=== PATIENT | male | born 1990 | race American Indian/Alaskan Native ===

== ENCOUNTER 2019-02-26 19:00 | Emergency (ER) | payer SELFPAY ==
[2019-02-26 19:32] VITALS: BP 125/92
--- NOTE | 2019-02-26 19:49 | Event Note ---
ED Screening Note ED Screening Note: 4 days fever productive cough with green phlegm diarrhea vomiting difficulty tolerating po intake no sick contacts no pmhx no allergies to meds language line used for upper sorbian This initial assessment/diagnostic orders/clinical plan/treatment(s) is/are subject to change based on patients health status, clinical progression and re- assessment by fellow clinical providers in the ED. Further treatment and workup at subsequent clinical providers discretion. Patient/guardian urged not to elope from the ED as their condition may be serious if not clinically assessed and managed. Initial orders include: CXR labs
--- NOTE | 2019-02-26 20:20 | XRay Report ---
CHEST 2 VIEWS INDICATION / CLINICAL INFORMATION: productive cough. COMPARISON: None available. FINDINGS: SUPPORT DEVICES: None. HEART / MEDIASTINUM: No significant abnormality. LUNGS / PLEURA: No significant pulmonary or pleural abnormality. No pneumothorax. ADDITIONAL FINDINGS: No significant additional findings. IMPRESSION: 1. No acute findings. No convincing evidence for pneumonia. Signer Name: Shira Garcia MD Signed: 02/26/2019 8:16 PM Workstation Name: [id number]
[2019-02-26] MEDS ORDERED: methylPREDNISolone Sod Succinate 125 MG/2 ML INJ IV ONE (21:51)
[2019-02-26] MEDS ORDERED: ONDANSETRON 4 MG/2 ML INJ IV ONE (21:51)
[2019-02-26] MEDS ORDERED: IPRATROPIUM/ALBUTEROL SULFATE 3 ML AMPUL.NEB IH ONE (21:51)
[2019-02-26] MEDS ORDERED: FAMOTIDINE 20 MG/2 ML INJ IV ONE (21:51)
[2019-02-26] MEDS ORDERED: DICYCLOMINE 20 MG TAB PO ONE (21:52)
[2019-02-26 22:12] LABS: Alanine Aminotransferase 21 units/L (7-56); Albumin 4.8 g/dL (3.9-5); BUN/Creatinine Ratio 11; Blood Urea Nitrogen 8 mg/dL (9-20); Calcium 9.4 mg/dL (8.4-10.2); Hemolysis Index 36
[2019-02-26 22:33] LABS: Hematocrit 46.1 % (35.5-45.6); Hemoglobin 15.6 gm/dl (11.8-15.2); Mean Corpuscular HGB Conc 34 % (32-34); Mean Corpuscular Volume 95 fl (84-94); Platelet Count 238 K/mm3 (140-440); Red Blood Count 4.88 M/mm3 (3.65-5.03); Red Cell Distribution Width 12.5 % (13.2-15.2)
[2019-02-26 23:31] LABS: Basophils % (Manual) 0 % (0.0-1.8); Eosinophils % (Manual) 0 % (0.0-4.3); Platelet Estimate Consistent w Auto; RBC Morphology Normal; Total Cells Counted 100
--- NOTE | 2019-02-27 00:19 | Emergency Department Report ---
- General Chief Complaint: Nausea/Vomiting/Diarrhea Stated Complaint: FEVER,WEAKNESS, BODY PAIN Time Seen by Provider: 02/26/19 19:36 Source: patient Mode of arrival: Ambulatory Limitations: Language Barrier - History of Present Illness Initial Comments: Patient is a 29-year-old male with no past medical history who presents to the ED with congenital acute onset persistent nasal and sinus congestion, frontal sinus pressure and headache, persistent dry cough, diffuse body aches and pains, shortness of breath, intermittent nausea and vomiting with diarrhea and epigastric pain for the last 1 week, worse in the last 4 days. Patient denies dizziness, syncope, chest pain, change in vision, dysuria, testicular pain, sore throat, no back pain, or shortness of breath. Patient states that he has been taking [id number] medications with no relief. MD Complaint: fever, cough, sore throat, rhinorrhea, nasal congestion, sinus pain, other (diffuse body aches and pains; Nausea, vomiting, diarrhea) -: Sudden, days(s) (4) Severity: severe Severity scale (0 -10): 7 Quality: sharp, aching Consistency: constant Improves With: nothing Worsens With: nothing Context: sick contacts Associated Symptoms: denies other symptoms, fever, chills, myalgias, headache, rhinorrhea, nasal congestion, sore throat, cough, shortness of breath, nausea, vomiting, diarrhea. denies: dysuria, rash, confusion, epistaxis, hoarseness Treatments Prior to Arrival: none - Related Data Previous Rx's Medication Instructions Recorded Last Taken Type Albuterol INH(or & Nicu Only) 1 - 2 puff IH Q6H PRN #1 inh 02/27/19 Unknown Rx [ProAir HFA Inhaler] Amoxicillin [Trimox CAP] 500 mg PO Q8H #30 capsule 02/27/19 Unknown Rx Benzonatate [Tessalon Perles] 100 mg PO Q8HR #30 capsule 02/27/19 Unknown Rx Cetirizine HCl [Zyrtec 10mg tab] 10 mg PO DAILY #30 tablet 02/27/19 Unknown Rx Famotidine [Pepcid] 20 mg PO Q12H #40 tablet 02/27/19 Unknown Rx Ibuprofen [Motrin] 600 mg PO Q8H PRN #24 tablet 02/27/19 Unknown Rx Ondansetron [Zofran Odt] 4 mg PO Q6HR PRN #20 tab.rapdis 02/27/19 Unknown Rx Prednisone [predniSONE 10 mg 10 mg PO .TAPER #21 tab.ds.pk 02/27/19 Unknown Rx (6-Day Pack, 21 Tabs)] Allergies Allergy/AdvReac Type Severity Reaction Status Date / Time No Known Allergies Allergy Unverified 02/26/19 19:49 ED Review of Systems ROS: Stated complaint: FEVER,WEAKNESS, BODY PAIN Other details as noted in HPI Constitutional: denies: chills, fever Eyes: denies: eye pain, eye discharge, vision change ENT: congestion. denies: ear pain, throat pain Respiratory: cough, wheezing. denies: shortness of breath Cardiovascular: denies: chest pain, palpitations Endocrine: no symptoms reported Gastrointestinal: nausea, vomiting, diarrhea Genitourinary: denies: urgency, dysuria Musculoskeletal: arthralgia, myalgia. denies: back pain, joint swelling Skin: denies: rash, lesions Neurological: headache. denies: weakness, paresthesias Psychiatric: denies: anxiety, depression Hematological/Lymphatic: denies: easy bleeding, easy bruising ED Past Medical Hx - Past Medical History Previous Medical History?: No - Surgical History Past Surgical History?: No - Social History Smoking Status: Never Smoker Substance Use Type: None - Medications Home Medications: Home Medications Medication Instructions Recorded Confirmed Last Taken Type Albuterol INH(or & Nicu Only) 1 - 2 puff IH Q6H PRN #1 inh 02/27/19 Unknown Rx [ProAir HFA Inhaler] Amoxicillin [Trimox CAP] 500 mg PO Q8H #30 capsule 02/27/19 Unknown Rx Benzonatate [Tessalon Perles] 100 mg PO Q8HR #30 capsule 02/27/19 Unknown Rx Cetirizine HCl [Zyrtec 10mg tab] 10 mg PO DAILY #30 tablet 02/27/19 Unknown Rx Famotidine [Pepcid] 20 mg PO Q12H #40 tablet 02/27/19 Unknown Rx Ibuprofen [Motrin] 600 mg PO Q8H PRN #24 tablet 02/27/19 Unknown Rx Ondansetron [Zofran Odt] 4 mg PO Q6HR PRN #20 tab.rapdis 02/27/19 Unknown Rx Prednisone [predniSONE 10 mg 10 mg PO .TAPER #21 tab.ds.pk 02/27/19 Unknown Rx (6-Day Pack, 21 Tabs)] ED Physical Exam - General Limitations: Language Barrier General appearance: alert, in no apparent distress - Head Head exam: Present: atraumatic, normocephalic, normal inspection - Eye Eye exam: Present: normal appearance, PERRL, EOMI - ENT ENT exam: Present: normal orophraynx, mucous membranes moist, TM's normal bilaterally, normal external ear exam, other (grossly congested nasal passages; palpable frontal and maxillary sinus tenderness) - Neck Neck exam: Present: normal inspection, full ROM, lymphadenopathy - Respiratory Respiratory exam: Present: wheezes (order to diffuse coarse wheezes throughout). Absent: respiratory distress, rales, rhonchi, chest wall tenderness, accessory muscle use, decreased breath sounds - Cardiovascular Cardiovascular Exam: Present: regular rate, normal rhythm, normal heart sounds. Absent: systolic murmur, diastolic murmur, rubs, gallop - GI/Abdominal GI/Abdominal exam: Present: soft, normal bowel sounds. Absent: tenderness, guarding, hyperactive bowel sounds, hypoactive bowel sounds - Extremities Exam Extremities exam: Present: normal inspection, full ROM, normal capillary refill - Back Exam Back exam: Present: normal inspection, full ROM. Absent: CVA tenderness (L), muscle spasm, paraspinal tenderness - Neurological Exam Neurological exam: Present: alert, oriented X3, CN II-XII intact, normal gait, reflexes normal - Psychiatric Psychiatric exam: Present: normal affect, normal mood - Skin Skin exam: Present: warm, dry, intact, normal color. Absent: rash ED Course Vital Signs 02/26/19 02/26/19 02/26/19 19:22 19:36 23:12 Temperature 98.6 F 98.6 F Pulse Rate 96 H 88 Pulse Rate [ 85 Bilateral] Respiratory 18 18 Rate Respiratory 22 Rate [Bilateral ] Blood Pressure 125/92 125/92 O2 Sat by Pulse 98 98 Oximetry ED Medical Decision Making - Lab Data Result diagrams: 02/26/19 20:50 02/26/19 20:50 - Radiology Data Radiology results: report reviewed, image reviewed Chest x-ray shows no acute cardiopulmonary abnormalities or pneumonitis. - Medical Decision Making This is a 29-year-old male who presented to the ED with nasal and sinus congestion, frontal sinus pressure and pain, headache, diffuse body aches and pains, persistent dry cough with wheezing, intermittent nausea and vomiting and diarrhea. In the ED, patient is alert and oriented 3 and is not in distress with normal vital signs. Patient was treated in the ED with DuoNeb and Solu- Medrol and also treated for nausea and vomiting. Lab test results were reviewed and are nonactionable. On reevaluation, patient's cough and wheezing resolved with medications. Patient has not had any nausea or vomiting while in the ED. Patient was discharged home on medications and advised to follow-up with his primary care physician in 7-10 days for reevaluation or return to the ED im mediately if symptoms get worse. - Differential Diagnosis URI; Sinusitis; Bronchitis; Pneumonia; Flu; GERD; Gastroenteritis Critical care attestation.: If time is entered above; I have spent that time in minutes in the direct care of this critically ill patient, excluding procedure time. ED Disposition Clinical Impression: Acute upper respiratory infection, Acute bacterial sinusitis, Nausea, vomiting and diarrhea, Flu-like symptoms Acute bronchitis Qualifiers: Bronchitis organism: other organism Qualified Code(s): J20.8 - Acute bronchitis due to other specified organisms Disposition: DC-01 TO HOME OR SELFCARE Is pt being admited?: No Does the pt Need Aspirin: No Condition: Stable Instructions: Acute Bronchitis (ED), Acute Nausea and Vomiting (ED), Upper Respiratory Infection (ED), Acute Bacterial Rhinosinusitis (ED) Additional Instructions: [facility] medicamentos con alimentos, stefan muchos lquidos y cari un seguimiento con lawrence mdico de atencin primaria en 7-10 taylor para la reevaluacin. Regrese al servicio de urgencias de inmediato si los sntomas empeoran. Prescriptions: Ibuprofen [Motrin] 600 mg PO Q8H PRN #24 tablet PRN Reason: Pain Famotidine [Pepcid] 20 mg PO Q12H #40 tablet Prednisone [predniSONE 10 mg (6-Day Pack, 21 Tabs)] 10 mg PO .TAPER #21 tab.ds.pk Albuterol INH(or & Nicu Only) [ProAir HFA Inhaler] 1 - 2 puff IH Q6H PRN #1 inh PRN Reason: Dyspnea Benzonatate [Tessalon Perles] 100 mg PO Q8HR #30 capsule Amoxicillin [Trimox CAP] 500 mg PO Q8H #30 capsule Ondansetron [Zofran Odt] 4 mg PO Q6HR PRN #20 tab.rapdis PRN Reason: Nausea Cetirizine HCl [Zyrtec 10mg tab] 10 mg PO DAILY #30 tablet Referrals: [facility] [Outside] - 3-5 Days KELY NIETO MD [Staff Physician] - 3-5 Days Forms: Work/School Release Form(ED) Time of Disposition: 00:15 Print Language: CHINESE
== END 2019-02-27 01:23 | disposition home or self-care (01) ==
LOC: ED 19:00
DX: J20.8 Acute bronchitis due to other specified organisms (principal); J11.1 Influenza due to unidentified influenza virus with other respiratory manifestations; J06.9 Acute upper respiratory infection, unspecified; J01.80 Other acute sinusitis; B96.89 Other specified bacterial agents as the cause of diseases classified elsewhere; R11.2 Nausea with vomiting, unspecified; R19.7 Diarrhea, unspecified
CPT/HCPCS: 36415; 71046; 80053; 83690; 85007; 85025; 94640; 96374; 96375; 99284; J2405; J2930; 94644